=== PATIENT | male | born 1960 | race Caucasian/White ===

== ENCOUNTER 2017-06-10 21:31 | Observation (INO) ==
--- NOTE | 2017-06-11 03:27 | Internal Med History&Physical ---
Date of Encounter: 06/11/17 Time of Encounter: 03:27 Assessment and Plan (1) DKA (diabetic ketoacidoses) Current visit: Yes Status: Acute Patient transferred from [facility] for hyperglycemia. Patient's labs indicated DKA Na 124, Cl 85, CO2 20, LA 3.4, UA showing 15 ketones glucose 759 Plan: continue IV rehyration rechecking labs stat including bmp, LA, betahydroxybutarate POC glucose here have been 456, 413 insulin drip has been ordered, DKA protocol ordered will start pending results of lab work meanwhile Medium dose SSI ordered. Patient given 16 units. Qualifiers: Diabetes mellitus type: type 2 Diabetes mellitus complication detail: without coma Qualified Code(s): E11.10 - Type 2 diabetes mellitus with ketoacidosis without coma (2) JENNIFER (acute kidney injury) Current visit: Yes Status: Acute Pt's Cr at [place] 2.2 Patient denies hx of kidney issues This is patient's fist time at [facility] no baseline to compare. Plan: Recheck BMP IV fluid rehydration hold patient's ARB avoid nephrotoxic agents continue to monitor (3) Diabetes mellitus Current visit: Yes Status: Acute Pt with recent diagnosis of DM Patient has been on metformin for approximately 1 year. Plan: hold metformin rechecking labs. Start Insulin drip if Gap and ketones still present if not start SSI Qualifiers: Diabetes mellitus type: type 2 Diabetes mellitus complication status: with ketoacidosis Diabetes mellitus complication detail: without coma Diabetes mellitus meterman insulin use: without meterman use Qualified Code(s): E11.10 - Type 2 diabetes mellitus with ketoacidosis without coma (4) HTN (hypertension) Current visit: Yes Status: Acute Pt with Hx of HTN diagnosed aproximately 1 year ago. Patient on home HCTZ-Losartan Patient has had borderline blood pressures. Plan: hold HCTZ-Losartan 2/2 to JENNIFER and Hypotension continue IV fluid rehydration. Qualifiers: Hypertension type: essential hypertension Qualified Code(s): I10 - Essential (primary) hypertension Internal Medicine - H&P: HPI Chief complaint: Hyperglycemia Admitted From: Hospital to Hospital Transfer Plans for Post Hospital Care: Home History of present illness: Mr. García is a 57 year old male c PMHx of DM and HTN who reports to [facility] as a transfer from [facility] for hyperglycemia. Patient reports that about a month ago he was treated for bronchitis with abx and two rounds of prednisone. Since then he developed polyuria, polydypsia, "cotton mouth". Patient went to his PCP's office where his POC glucose read "High" he was sent to [facility]. He was worked up there with CBC, CMP, UA, CXR, LA, Lipase, ABG. Patient's work up there showed: LA 3.4, Na 124, K 4.1, Cl 85, Co2 20, BUN 40, Cr 2.2, Glucose 759, GAP 19 LFTs nl, Lipase 337. UA showed 15 ketones. ABG showed pH 7.43, Pcos 24, PO2 73, Bicarb 15.9, Oxygen sat 95, Base Excess -6.7. patient received 19 units of Humalin one time, 1 L LR and 1 L NS. Patient was then transferred to [facility], with the given diagnosis of HHS, as there were no beds at [facility]. Patient was started on Metformin approximately a year ago by PCP. Patietn denies having any issues prior to this. Patient denies current Chest pain, SOB, abd pn, N, V, D. Patient does reports some nausea yesterday. Past Med Surg Social Fam HX - Past Medical History Medical history: diabetes, hypertension Psychiatric history: no psych history - Social History Smoking Status: Current some day smoker Smokeless Tobacco Status: Yes (past) Alcohol use: occasionally Drug use: none - Family History Father Hx Family Cardiac Disorders: Yes (HTN) Internal Medicine - H&P: Meds Losartan/Hydrochlorothiazide [Losartan-Hctz 100-12.5 mg Tab] 1 each PO DAILY [History] metFORMIN [Glucophage] 500 mg PO 0800 06/10/17 [History] 3 Allergy/AdvReac Type Severity Reaction Status Date / Time Penicillins Allergy Hives Verified 06/10/17 23:41 All Systems PM: A 10-system review of systems was performed and is negative for pertinent findings except as documented above in the HPI. - Constitutional Vitals: Temp Pulse Resp BP Pulse Ox 97.8 F 87 17 98/62 94 06/11/17 03:24 06/11/17 03:24 06/11/17 03:24 06/11/17 03:24 06/11/17 03:24 General appearance: Present: A&O X 3, no acute distress, answers questions appropriately - Head Head exam: Present: atraumatic, normocephalic - Eye Eye exam: Present: PERRL, conjuntiva pink, sclera anicteric Pupils: Present: PERRL - ENT ENT exam: Present: mucous membranes dry - Neck Neck exam general surgery: Present: supple, trachea midline - Respiratory Respiratory exam: Present: CTAB. Absent: accessory muscle use, rales, rhonchi, wheezes - Cardiovascular Cardiovascular exam: Present: RRR, +S1, +S2. Absent: diastolic murmur, gallop, rubs, systolic murmur - GI/Abdominal GI/Abdominal exam: Present: normal bowel sounds, soft, no peritoneal signs. Absent: distended, tenderness - Extremities Exam Extremities exam: Present: warm, radial pulses palpable and symmetrical. Absent : calf tenderness, cyanotic, pedal edema - Neurological Exam Neurological exam: Present: alert, CN II-XII intact, oriented X3, no focal deficits. Absent: facial droop, speech deficit - Skin Skin exam: Present: dry, intact
[2017-06-11] MEDS ORDERED: 0.9 % Sodium Chloride 1,000 ML IV SCH (03:30)
[2017-06-11] MEDS ORDERED: Insulin LISPRO 300 UNITS/3 ML VIAL SQ ONE (03:34)
[2017-06-11] MEDS ORDERED: Insulin LISPRO 300 UNITS/3 ML VIAL SQ PRN (03:58)
[2017-06-11] MEDS ORDERED: *HR* Dextrose 50 % in Water (Syg) 50 ML SYRINGE IVP PRN ×2 (03:58→11:47)
[2017-06-11] MEDS ORDERED: Insulin Human Regular 100 UNIT in 0.9 % Sodium Chloride 100 ML IVC SCH (04:00)
[2017-06-11 05:25] LABS: Basophils % 0.3 %; Eosinophils % 0.4 %; Hematocrit 46.6 % (37.5-50.1); Hemoglobin 16.7 g/dL (12.9-16.9); Immature Granulocytes % 1.1 % (0-4); Lymphocytes # 2.6 K/mcL (0.6-4.6); Lymphocytes % 34.5 %; Mean Corpuscular HGB Conc 35.8 g/dL (31.6-35.5); Mean Corpuscular Volume 83.8 fL (83.0-100.0); Mean Platelet Volume 11.6 fL (9.4-12.4); Monocytes # 0.4 K/mcL (0.0-1.3); Monocytes % 5.6 %; Neutrophils # 4.4 K/mcL (1.6-8.9); Platelet Count 152 K/mcL (140-400); Red Blood Count 5.56 M/mcL (4.19-5.50); Red Cell Distribution Width 12.8 % (11.5-14.5); Segmented Neutrophils % 58.1 %
[2017-06-11 05:36] LABS: VBG HCO3 19 mEq/L (21-27); VBG PCO2 31 mmHg (41-51); VBG PH 7.39 pH Units (7.32-7.42); VBG PO2 65 mmHg (25-50)
[2017-06-11 05:42] LABS: Estimated Average Glucose > 355 mg/dl; Hemoglobin A1C >= 14.1 %
[2017-06-11 05:47] LABS: BUN/Creatinine Ratio 27 (6-26); Blood Urea Nitrogen 31 mg/dL (6-20); Calcium 8.3 mg/dL (8.6-10.3); Carbon Dioxide 19 mEq/L (23-29); Chloride 97 mEq/L (98-107); Glucose 397 mg/dL (70-105); Osmolality,Calculated 295 (280-300); Phosphorous 2.5 mg/dL (2.7-4.5); Potassium 3.3 mEq/L (3.5-5.1); Sodium 131 mEq/L (136-145); eGFR For African Americans > 60 (> 60); eGFR For Non-African Americans > 60 (> 60)
[2017-06-11] MEDS ORDERED: Insulin LISPRO 300 UNITS/3 ML VIAL SQ SCH ×2 (06:00→21:15)
[2017-06-11] MEDS: 0.9 % Sodium Chloride w KCl 20 MEQ/1,000 ML MLS IVC SCH ×3 (06:29→23:13)
--- NOTE | 2017-06-11 10:41 | Event Note ---
Date of Encounter: 06/11/17 Time of Encounter: 10:39 Patient resting quietly in bed. His insulin drip has been stopped and he is now on Accu-Cheks before meals and at bedtime. He is taking a diabetic diet without any difficulty. Have arranged outpatient follow-up for next week with his PCP who has an special education bus driver in the office. Also dietary consult and we will obtain him a glucometer. Also start diabetic teaching. He stated he was only on one pill for his diabetes that was diagnosed about a year ago but he states it was not really called diabetes he was just told he had some high blood sugars. Hemoglobin A1c on admission was 14.1. Potassium is low and will be replaced.
[2017-06-11] MEDS ORDERED: Dextrose Gel 15 GM/37.5 ML TUBE PO PRN ×2 (11:47)
[2017-06-11] MEDS ORDERED: D5% in Water 1,000 ML IVC PRN (11:47)
[2017-06-11] MEDS: Insulin LISPRO 300 UNITS/3 ML VIAL SQ SCH ×2 (12:14→18:36)
[2017-06-12 07:35] VITALS: BP 130/87
[2017-06-12] MEDS: 0.9 % Sodium Chloride w KCl 20 MEQ/1,000 ML MLS IVC SCH (07:58)
[2017-06-12] MEDS: Insulin LISPRO 300 UNITS/3 ML VIAL SQ SCH (07:59)
[2017-06-12 08:01] LABS: Bilirubin,Urine Negative (Negative); Blood,Urine Negative (Negative); Clarity,Urine Clear (Clear); Color,Urine Yellow (Yellow); Glucose,Urine (UA) >=1000 mg/dL (Normal); Ketones,Urine 40 mg/dL (Negative); Leukocyte Esterase,Urine Negative (Negative); Nitrite,Urine Negative (Negative); Protein,Urine Negative (Neg-Trace); Specific Gravity,Urine > 1.030 (1.010-1.025); Urobilinogen,Urine Normal (Normal)
--- NOTE | 2017-06-12 09:27 | Discharge Summary ---
Orders not resulted at time of discharge: Pending orders 06/12/17 08:07 Basic Metabolic Panel Stat CBC no Diff [Complete Blood Count w/o Diff] [HEME] Stat Date of Encounter: 06/12/17 Time of Encounter: 09:25 - Discharge Diagnosis (1) Hypokalemia Priority: Primary Status: Acute Comments: replaced and rechecked and normalized (2) JENNIFER (acute kidney injury) Priority: Primary Status: Resolved Comments: BUN 31 with creatinine of 1.15. Fluids were given,rechecked Now 20 and .88 (3) DKA (diabetic ketoacidoses) Priority: Primary Status: Resolved Comments: resolved Qualifiers: Diabetes mellitus type: type 2 Diabetes mellitus complication detail: without coma Qualified Code(s): E11.10 - Type 2 diabetes mellitus with ketoacidosis without coma (4) Diabetes mellitus Priority: Primary Status: Acute Comments: Patient was transferred from [facility] with hyperglycemia. Sodium 124 chloride 85 CO2 20 lactic acid 3.4 with urine showing 15 ketones, glucose of 759 He was placed on insulin drip and when his glucose dropped to 200 mL insulin drip was stopped. He was then started on a diabetic diet and sliding scale insulin coverage before meals and at bedtime. According to the patient he was started on metformin 500 by mouth daily about a year ago but was never told that he had diabetes. His hemoglobin A1c on presentation was 14.1 Started diabetic education with glucometer and instructions on how to use that. Arrange for follow-up with his PCP and pointer helper next week in the office. We will discharge on metformin twice a day Spent quite a bit of time talking to the patient about the importance of following up as directed and taking his medications as directed Estimated diabetes had a lot of complications and he really needed to get a handle on this including diet. He states he likes beer and bread. I stated he would have to adjust his lifestyle He told me that he was unable to miss work because of a point system and if he misses very much work he will be fired so he is not sure he will follow up. Once again INR and importance of his follow-up with diabetes. 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 García is a 57 year old male with a past medical history of diabetes on 500 metformin daily and hypertension who was transferred from [facility] for hyperglycemia. He had developed polyuria polydipsia and dry mouth. He went to his PCPs office where his POC glucose read high and was sent to the [facility] ED, he had blood work there that showed a lactic acid of 3.4, sodium 124 , potassium 4.1, chlorides 85, CO2 20, BUN 40 and creatinine 2.2 with a glucose of 759 and a gap of 19. LFTs were normal lipase is 337, urine showed 15 ketones. ABG showed pH 7.48 with a PCO 2 of 24 and a PaO2 of 73, bicarbonate 15.9 and oxygen saturation 95% his base excess was -6.7. He received 19 units of Humulin insulin 1 time, 1 L of lactated Ringer's and 1 L of any nasal saline and was transferred to this facility. He was started on a insulin drip and then transitioned to Accu-Chek before meals and at bedtime with moderate dose sliding scale coverage. He is tolerating a diabetic diet with no nausea. Had a long discussion regarding importance of following up with his PCP next week. Discussed medications to be Discharged on including metformin 1000 twice a day and glipizide 5 daily. Also will be given a glucometer and instructions on how to utilize that to monitor sugars. Blood pressure has stabilized since restarted on his losartan with HCTZ held. Appointment has been arranged for next week with his PCP who will arrange for him to see an pointer helper. Discharge discussed with: patient Time spent discussing smoking cessation with patient: 3 to 10 minutes - Time Spent with Patient Total time spent providing and/or coordinating discharge services: Less than 30 minutes - Discharge Medications Prescriptions: GlipiZIDE [Glipizide Xl] 5 mg PO DAILY #30 tab.er.24 metFORMIN [Glucophage] 1,000 mg PO BID 30 Days #120 tablet Home Medications: GlipiZIDE [Glipizide Xl] 5 mg PO DAILY #30 tab.er.24 06/12/17 [Rx] Losartan [Cozaar] 100 mg PO DAILY #30 tablet 06/12/17 [Rx] metFORMIN [Glucophage] 1,000 mg PO BID 30 Days #120 tablet 06/12/17 [Rx] Allergies/Adverse Reactions: 3 Allergy/AdvReac Type Severity Reaction Status Date / Time Penicillins Allergy Hives Verified 06/10/17 23:41 Date of admission: 06/10/17 23:13 Primary care physician: Niharika Campbell MD Consults: 06/11/17 10:16 consult to rn training [Consult to Nutrition] [CONS] Routine Comment: Consulting Provider: NUTRITION Reason for Dietary Consult: Diet Education Discharging clinician: Rosetta Edwards Anticipated date of discharge: 06/12/17 - Constitutional Vitals: Temp Pulse Resp BP Pulse Ox 97.9 F 74 20 130/87 96 06/12/17 07:34 06/12/17 07:34 06/12/17 07:34 06/12/17 07:34 06/12/17 07:34 General appearance: Present: cooperative, A&O X 3, pleasant, no acute distress, obese, answers questions appropriately - Head Head exam: Present: atraumatic, normocephalic - Eye Eye exam: Present: PERRL, conjuntiva pink, sclera anicteric Pupils: Present: PERRL - Neck Neck exam general surgery: Present: supple, trachea midline. Absent: lymphadenopathy - Respiratory Respiratory exam: Present: CTAB. Absent: accessory muscle use, rales, rhonchi, wheezes - Cardiovascular Cardiovascular exam: Present: RRR, +S1, +S2. Absent: diastolic murmur, gallop, rubs, systolic murmur - GI/Abdominal GI/Abdominal exam: Present: normal bowel sounds, soft, no peritoneal signs. Absent: distended, tenderness - Extremities Exam Extremities exam: Present: warm, radial pulses palpable and symmetrical. Absent : calf tenderness, cyanotic, pedal edema - Neurological Exam Neurological exam: Present: alert, CN II-XII intact, normal gait, oriented X3, no focal deficits, strengths equal and symetr throughout. Absent: pronater drift, facial droop, speech deficit - Skin Skin exam: Present: dry, intact, warm - Patient Status Disposition: Home, Self-Care Condition: Good Functional capacity at discharge: independent ambulation Overall status at discharge: patient is back to baseline - Discharge Instructions Follow Up With: Niharika Campbell MD [Primary Care Provider] - 06/17/17 10:00 am Additional Instructions: Check glucometer and keep a log twice a day and still seen by your primary care physician next week. Eat 3 meals a day and a bedtime snack. Follow the diabetic diet. Avoid alcohol and heavy carb load. Metformin may cause diarrhea but do not stop the dose that is a known side effect - Diet and Activity Activity: resume usual activities as tolerated
[2017-06-12 09:43] LABS: Hematocrit 42.5 % (37.5-50.1); Mean Corpuscular HGB Conc 34.8 g/dL (31.6-35.5); Mean Platelet Volume 11.3 fL (9.4-12.4); Platelet Count 110 K/mcL (140-400); Red Blood Count 4.94 M/mcL (4.19-5.50); Red Cell Distribution Width 13.3 % (11.5-14.5)
[2017-06-12 09:46] LABS: Hemoglobin 14.8 g/dL (12.9-16.9)
[2017-06-12 09:56] LABS: BUN/Creatinine Ratio 23 (6-26); Blood Urea Nitrogen 20 mg/dL (6-20); Calcium 7.5 mg/dL (8.6-10.3); Carbon Dioxide 20 mEq/L (23-29); Chloride 108 mEq/L (98-107); Glucose 315 mg/dL (70-105); Osmolality,Calculated 293 (280-300); Potassium 3.7 mEq/L (3.5-5.1); Sodium 134 mEq/L (136-145); eGFR For African Americans > 60 (> 60); eGFR For Non-African Americans > 60 (> 60)
== END 2017-06-12 11:24 | disposition home or self-care (01) ==
LOC: 3BNU
PROVIDERS: ADMIT Nurse Practitioner Family; ATTEND Registered Nurse